=== PATIENT | female | born 1995 | race Caucasian/White ===

== ENCOUNTER 2023-06-03 11:19 | Emergency (ER) | payer OTHER ==
[~2023-06-03] VITALS: Ht 167.6 cm; Wt 104.8 kg
[~2023-06-03 11:19] MED LIST: AZIT250T3 PO
[2023-06-03 11:31] VITALS: BP 119/75; PULSE 66; RESP 18; TEMP 97.7; O2SAT 100
[2023-06-03 13:57] VITALS: O2SAT 100
[2023-06-03] MEDS ORDERED: CEPH-588 PO (16:22)
[2023-06-03] MEDS ORDERED: SULF-59 PO (16:22)
== END 2023-06-03 16:32 | disposition home or self-care (01) ==
LOC: MED 11:19
DX: N61.1 Abscess of the breast and nipple (principal); Z79.899 Other long term (current) drug therapy
CPT/HCPCS: 76641; 99284; Q0092